=== PATIENT | female | born 2005 | race African-American/Black ===

== ENCOUNTER 2025-01-22 15:49 | Emergency (ER) | payer OTHER ==
[2025-01-22 15:54] VITALS: BP 114/73; PULSE 60; RESP 18; TEMP 98.3; BMI 27.4
[2025-01-22] MEDS ORDERED: ACETAMINOPHEN 325 MG TABLET (FP) ONE (16:38)
[2025-01-22] MEDS: ACETAMINOPHEN 325 MG TABLET (FP) PO ONE (16:59)
== END 2025-01-22 18:33 | disposition home or self-care (01) ==
LOC: JER 15:49
DX: R51.9 Headache, unspecified (principal); M25.472 Effusion, left ankle; V43.62XA Car passenger injured in collision with other type car in traffic accident, initial encounter; Y92.410 Unspecified street and highway as the place of occurrence of the external cause
CPT/HCPCS: 70450-TC; 73610-TC-LT-FY; 73630-TC-LT; 84703; 99284-25